=== PATIENT | female | born 1990 | race Caucasian/White ===

== ENCOUNTER 2018-05-02 11:07 | Emergency (ER) | payer MEDICARE, OTHER ==
[2018-05-02 11:18] VITALS: RESP 18
--- NOTE | 2018-05-02 11:46 | ED ---
General Adult HPI - General Chief complaint: Recheck/Abnormal Lab/Rx Stated complaint: Cannot Urinate, Weakness in legs Source: patient Mode of arrival: wheelchair Limitations: no limitations - History of Present Illness Initial comments: Dictation was produced using [employer] dictation software. please excuse any grammatical, word or spelling errors. Chief Complaint: 27-year-old female with past medical history of Dandy-Walker syndrome presents with chief complaint of abnormal MRI outpatient History of Present Illness: On 2 hours away. She was seen at an emergency department in another facility. She had an MRI performed outpatient in her hometown which showed severe 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 She's had difficulty with urination for approximately 2 weeks. MRI was performed showing severe 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 She has been having severe urinary retention. Last urination was approximately 12 hours ago. Patient is complaining of severe back pain. Denies any bowel or bladder incontinence. No saddle anesthesia patient was seen at emergency department in her hometown and was discharged and told to follow-up on Friday. Patient states her pain is getting worse problems to the emergency department today The ROS documented in this emergency department record has been reviewed and confirmed by me. Those systems with pertinent positive or negative responses have been documented in the HPI. All other systems are other negative and/or noncontributory. - Related Data Home Medications Medication Instructions Recorded Confirmed Cholecalciferol [Vitamin D3] 2,000 unit PO DAILY 03/07/16 04/10/16 Escitalopram [Lexapro] 10 mg PO DAILY 03/07/16 04/10/16 Ferrous Sulfate [Feosol] 325 mg PO DAILY 03/07/16 04/10/16 HYDROcodone/APAP 5-325MG [Orefield 1 tab PO Q4HR PRN 03/07/16 04/10/16 5-325] Norethindrone AC-Eth Estradiol 1 tab PO DAILY 03/07/16 04/10/16 [Loestrin 21 1-20 Tablet] Ondansetron [Zofran ODT] 8 mg PO Q8HR PRN 03/07/16 04/10/16 Red Yeast Rice 600 mg PO DAILY 03/07/16 04/10/16 Spironolactone [Aldactone] 50 mg PO DAILY 03/07/16 04/10/16 metFORMIN HCL [Glucophage] 850 mg PO BID 03/07/16 04/10/16 Allergies Allergy/AdvReac Type Severity Reaction Status Date / Time acetaminophen [From Orefield] Allergy Unknown Verified 05/02/18 11:12 adhesive Allergy Rash/Hives Verified 05/02/18 11:12 hydrocodone [From Orefield] Allergy Unknown Verified 05/02/18 11:12 latex Allergy Rash/Hives, Verified 05/02/18 11:12 fever, redness metoclopramide HCl Allergy anxiety Verified 05/02/18 11:12 [From Reglan] morphine Allergy Nausea & Verified 05/02/18 11:12 Vomiting vancomycin Allergy red man Verified 05/02/18 11:12 syndrome warfarin sodium Allergy Unknown Verified 05/02/18 11:12 [From Coumadin] Review of Systems ROS Statement: Those systems with pertinent positive or pertinent negative responses have been documented in the HPI. ROS Other: All systems not noted in ROS Statement are negative. Past Medical History Additional Past Medical History / Comment(s): dandy walker syndrome, hydrocephalus , PCOS, headaches History of Any Multi-Drug Resistant Organisms: None Reported Past Surgical History: Cholecystectomy, Hysterectomy, Ventriculoperitoneal Shunt Additional Past Surgical History / Comment(s): med port, eye surgery, programmable PATTERN CUTTER shunt Past Anesthesia/Blood Transfusion Reactions: No Reported Reaction Past Psychological History: Depression Smoking Status: Never smoker Past Alcohol Use History: None Reported Past Drug Use History: None Reported - Past Family History Mother Family Medical History: Cancer Additional Family Medical History / Comment(s): brain General Exam - General Exam Comments Initial Comments: PHYSICAL EXAM: General Impression: Alert and oriented x3, not in acute distress HEENT: Normocephalic atraumatic, extra-ocular movements intact, pupils equal and reactive to light bilaterally, mucous membranes moist. Cardiovascular: Heart regular rate and rhythm, S1&S2 audible, no murmurs, rubs or gallops Chest: Lungs clear to auscultation bilaterally, no rhonchi, no wheeze, no rales Abdomen: Bowel sounds present, abdomen soft, non-tender, non-distended, no organomegaly Musculoskeletal: Pulses present and equal in all extremities, no peripheral edema, tenderness about patient over the back. 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 As upon arrival are within acceptable limits. Bladder scan was performed showing urinary retention of greater than 1 L. patient has severe findings seen on the read. She does have the disc with her. She does have physical findings of severe cord compression and family and patient requests to be transferred to [facility] for neurosurgical evaluation. Pending urine ER transfer. At time of transfer patient had stable vital signs. Pain was controlled. Eddy catheter was placed with bladder drainage. Discussed patient case with mony Corbin with Dr. Robertson who is willing to accept transfer Disposition Clinical Impression: Central stenosis of spinal canal Disposition: OTHER INSTITUTION NOT DEFINED Condition: Fair Referrals: Esther Coronado DO [Primary Care Provider] - 1-2 days Time of Disposition: 11:46 - Out of Hospital Transfer - Req. Specs Out of Hospital Transfer - Requested Specifics: Other Emergency Center
[2018-05-02 13:03] VITALS: BP 108/65; PULSE 79; TEMP 98
== END 2018-05-02 13:00 | disposition other institution (70) ==
LOC: EC 11:07
DX: M48.00 Spinal stenosis, site unspecified (principal); R33.9 Retention of urine, unspecified; R53.1 Weakness; F32.9 Major depressive disorder, single episode, unspecified; Z79.3 Long term (current) use of hormonal contraceptives; Z79.84 Long term (current) use of oral hypoglycemic drugs; Z79.899 Other long term (current) drug therapy; Z88.6 Allergy status to analgesic agent; Z91.048 Other nonmedicinal substance allergy status; Z88.5 Allergy status to narcotic agent; Z91.040 Latex allergy status; Z88.8 Allergy status to other drugs, medicaments and biological substances; Z88.1 Allergy status to other antibiotic agents; Z98.2 Presence of cerebrospinal fluid drainage device
CPT/HCPCS: 51702; 51798; 81025; 99285